=== PATIENT | male | born 1995 | race Caucasian/White ===

== ENCOUNTER 2025-03-31 05:43 | Emergency (ER) | payer BC, SELFPAY ==
[2025-03-31 05:51] VITALS: BP 144/95
--- NOTE | 2025-03-31 06:08 | ED.GENMED ---
History of Present Illness
<Niurka Sweeney PA-C - Last Filed: 03/31/25 08:31>
General
Chief Complaint: Chest Pain
Source: patient
Exam Limitations: none
Time Seen by Provider: 03/31/25 06:02
History of Present Illness
History of Present Illness:
29yoM with a history of obesity, asthma, GERD, and seasonal allergies presenting for evaluation of chest pain. He reports substernal and left lower chest pain that has been intermittent over the past day. Pain seems to come and go randomly and
lasts about 10 to 15 minutes at a time before resolving. Nothing seems to make the pain better or worse. Specifically, he denies any exertional or pleuritic pain. He initially thought his pain may be gas related although he had several bowel
movements without any improvement. He was feeling 'run down' yesterday but denies any fever or URI symptoms. He is otherwise asymptomatic and denies any shortness of breath, leg swelling, nausea, vomiting. No tobacco use.
Phy Exam
<Niurka Sweeney PA-C - Last Filed: 03/31/25 08:31>
General Physical Exam
General Presentation: well appearing and no apparent distress
General Skin: warm and dry
General Habitus: normal
General Mental: alert
ENT Exam
ENT Exam: normocephalic
Cardiovascular Exam
Cardiovascular Exam: regular rate/rhythm, no edema, no murmur and normal peripheral pulses (2+ radial and DP pulses bilaterally)
Pulmonary Exam
Pulmonary Exam: lungs clear, no respiratory distress, no rales, chest non tender, no crackles, no rhonchi and no wheezing
Neurological Exam
Neurological Exam: alert
[place] Coma Scale
Eye Opening: Spontaneous
Verbal Response: Oriented
Motor Response: Obeys Commands
GCS Total Score: 15
Skin Exam
Skin Exam: normal color and warm/dry
Psychiatric Exam
Psychiatric Exam: normal mood/affect
<Debo Grider MD - Last Filed: 03/31/25 07:40>
[place] Coma Scale
GCS Total Score: 15
Scores
<Niurka Sweeney PA-C - Last Filed: 03/31/25 08:31>
Heart Score for Chest Pain Patients
STEMI patient?: No
History: Slightly or Non-Suspicious
ECG: Normal
Age: </= 45 years
Risk Factors: 1 or 2 Risk Factors
Troponin: </= Normal Limit
Heart Score for Chest Pain Patients: 1
Heart Score Risk: 2.5% MACE over next 6 weeks
Course
<Niurka Sweeney PA-C - Last Filed: 03/31/25 08:31>
Orders/Labs/Results
Orders:
Orders
03/31/25 06:01
Electrocardiogram (*1) Urgent
Reason for Study: Chest Pain
Cardiac Monitoring- Treatment ONCE
EKG- Treatment ONCE
IV Insert/Care/Rem.- Treatment PRN
Chest [CR Chest - 2 Views ] Urgent
Comment:
Reason For Exam: cp
O2 Therapy [RESP] Urgent
Titrate/Wean O2 to maintain O2 sat greater than (%): 90
Special Instructions: Maintain sats >/=90%
Pulse Ox/spot Check [RESP] Urgent
Quantity: 1
Special Instructions: ON ROOM AIR
03/31/25 06:11
Complete Blood Count/With Diff Urgent
Comprehensive Metabolic Panel Urgent
Troponin I Urgent
Abnormal Lab Results
03/31/25
06:11
RDW 15.5 H %
(11.5-14.5)
Absolute Monos (auto) 0.7 H 10^3/uL
(0.1-0.6)
Monocytes % 10.0 H %
(1.7-9.3)
Chloride 109 H mmol/L
(98-107)
BUN 23 H mg/dl
(9-20)
Glucose 121 H mg/dl
(70-99)
03/31/25 06:11
03/31/25 06:11
Vital Signs
Initial and Last Documented VS:
Initial Vital Signs
Temp Pulse Resp BP Pulse Ox
98.2 F 78 18 144/95 99
03/31/25 05:51 03/31/25 05:51 03/31/25 05:51 03/31/25 05:51 03/31/25 05:51
Last Documented Vital Signs
Temp Pulse Resp BP Pulse Ox
98 F 79 22 145/82 98
03/31/25 06:11 03/31/25 06:47 03/31/25 06:47 03/31/25 07:49 03/31/25 07:50
<Debo Grider MD - Last Filed: 03/31/25 07:40>
Orders/Labs/Results
Orders:
Orders
03/31/25 06:01
Electrocardiogram (*1) Urgent
Reason for Study: Chest Pain
Cardiac Monitoring- Treatment ONCE
EKG- Treatment ONCE
IV Insert/Care/Rem.- Treatment PRN
Chest [CR Chest - 2 Views ] Urgent
Comment:
Reason For Exam: cp
O2 Therapy [RESP] Urgent
Titrate/Wean O2 to maintain O2 sat greater than (%): 90
Special Instructions: Maintain sats >/=90%
Pulse Ox/spot Check [RESP] Urgent
Quantity: 1
Special Instructions: ON ROOM AIR
03/31/25 06:11
Complete Blood Count/With Diff Urgent
Comprehensive Metabolic Panel Urgent
Troponin I Urgent
Abnormal Lab Results
03/31/25
06:11
RDW 15.5 H %
(11.5-14.5)
Absolute Monos (auto) 0.7 H 10^3/uL
(0.1-0.6)
Monocytes % 10.0 H %
(1.7-9.3)
Chloride 109 H mmol/L
(98-107)
BUN 23 H mg/dl
(9-20)
Glucose 121 H mg/dl
(70-99)
03/31/25 06:11
03/31/25 06:11
Vital Signs
Initial and Last Documented VS:
Initial Vital Signs
Temp Pulse Resp BP Pulse Ox
98.2 F 78 18 144/95 99
03/31/25 05:51 03/31/25 05:51 03/31/25 05:51 03/31/25 05:51 03/31/25 05:51
Last Documented Vital Signs
Temp Pulse Resp BP Pulse Ox
98 F 79 22 145/82 98
03/31/25 06:11 03/31/25 06:47 03/31/25 06:47 03/31/25 07:49 03/31/25 07:50
<Niurka Sweeney PA-C - Last Filed: 03/31/25 08:31>
MDM/Problems Addressed
Differential Diagnosis Includes:
29yoM here with intermittent dull L/central chest pain x 1 day. Comes and goes randomly. Otherwise asymptomatic. VSS. He is well appearing in no distress. Exam is reassuring. Differential diagnosis includes but is not limited to: musculoskeletal,
GERD, pneumonia, nonspecific chest pain, less likely ACS
Initial ED plan: Check cardiac labs, EKG, and CXR.
<Niurka Sweeney PA-C - Last Filed: 03/31/25 08:31>
*EKG
Interpreted by ED Provider?: Yes
EKG Intrepretation Date: 03/31/25
Heart Rate: 77
Rate: normal
Rhythm: sinus
[place]: normal axis
Interval: normal interval
QRS Pattern: normal QRS
Ischemia: no ischemia
*Critical Care Note
Total Time (30-74mins, 75-104mins- exclusive of procedures): Not Applicable
<Niurka Sweeney PA-C - Last Filed: 03/31/25 08:31>
Update Note
Update Note:
Labs overall unremarkable. EKG shows normal sinus rhythm without ischemic changes and troponin within normal limits. Chest x-ray is clear. HEART score is 1 for obesity risk factor. No indication for hospitalization. He does have an appointment
with his PCP scheduled for next month to have an EKG. Advised close outpatient follow-up and ED return precautions reviewed. Patient in agreement with plan and was discharged in stable condition.
ED Attending Note
<Niurka Sweeney PA-C - Last Filed: 03/31/25 08:31>
-
Portions of this chart may have been created with voice recognition software.� Occasional wrong word or��sound alike� substitutions may have occurred due to the inherent limitations of voice recognition software.
<Debo Grider MD - Last Filed: 03/31/25 07:40>
ED Attending Note
Patient seen and examined by attending physician: Yes
I performed the substantive portion of visit, reviewed & personally made and approve the management plan that is documented in note by myself or ROSARIO.: Yes
ED Attending Note:
29-year-old male with intermittent chest discomfort without associated nausea, vomiting, diaphoresis, dyspnea, leg swelling. On exam extremely well-appearing, awake alert oriented, voice clear, no swelling. Workup unremarkable for serious
etiology. Discharged with close follow-up.
Discharge Plan
Departure
Patient Disposition: Home (Routine Discharge)
Date of Disposition: 03/31/25
Time of Disposition: 07:38
Patient with high blood pressure during this ER visit?: Yes
Discharge Problem:
Nonspecific chest pain
Instructions: Chest Pain PCP Follow Up
Prescriptions:
No Action
omeprazole 20 MG capsule,delayed release(DR/EC)
20 mg PO DAILY
loratadine 10 MG tablet
10 mg PO DAILY
Referrals:
UNKNOWN - PT DOES,NOT KNOW [Family Provider]
Activity Restrictions/Additional Instructions:
Please call your family doctor today for follow-up. Return to the ER with any new or worsening symptoms.
Interventions
Interventions:
*Risk Screen - Suicide Last Done: 03/31/25 05:51
*General Assessment Last Done: 03/31/25 07:57
*Neglect/Abuse Screening Last Done: 03/31/25 07:57
*ED- Fall Risk Assessment Last Done: 03/31/25 07:57
*ED COVID-19 Vaccine History Last Done: 03/31/25 07:57
*Nursing Disposition Last Done: 03/31/25 07:57
ED- Cardiac Assessment Last Done: 03/31/25 06:40
Discharge Date and Time
Discharge Date/Time: 03/31/25 07:58
Print Language: BERMUDIAN
[2025-03-31 06:09] VITALS: BP 132/80
[2025-03-31 06:11] VITALS: BP 132/80; BMI 36.1
[2025-03-31 06:29] LABS: % Basophils 0.9 % (0-2); % Eosinophils 2.5 % (0-6); % Immature Granulocytes 0.3 % (0-0.5); % Lymphocytes 27.5 % (20.5-51.1); % Neutrophils 58.8 % (42.2-75.2); Absolute Basophils 0.1 10^3/uL (0-0.2); Absolute Eosinophils 0.2 10^3/uL (0-0.7); Absolute Lymphocytes 1.9 10^3/uL (1.2-3.4); Absolute Monocytes 0.7 10^3/uL (0.1-0.6); Hematocrit 43.5 % (39.0-52.0); Hemoglobin 14.6 g/dL (13.0-18.0); Mean Corp Hgb Conc. 33.6 g/dL (33.0-37.0); Mean Corpuscular Hgb 27.4 pg (27.0-31.0); Mean Corpuscular Volume 81.8 fL (80.0-94.0); Mean Platelet Volume 10.4 fL (7.4-10.4); Nucleated Red Blood Cells % 0 % (-); Platelet Count 238 10^3/uL (130-400); Red Blood Cell Count 5.32 10^6/uL (4.70-6.10); Red Cell Dist. Width 15.5 % (11.5-14.5); White Blood Cell Count 6.8 10^3/uL (4.8-10.8)
[2025-03-31 06:46] LABS: ALT (SGPT) 40 U/L (0-50); AST (SGOT) 27 U/L (17-59); Albumin 4.9 g/dl (3.5-5.0); Alkaline Phosphatase 75 U/L (38-126); Blood Urea Nitrogen 23 mg/dl (9-20); Calcium 9.9 mg/dl (8.4-10.2); Carbon Dioxide 25 mmol/L (22-30); Chloride 109 mmol/L (98-107); Estimated Creatinine Clearance > 125 ml/min; Glucose 121 mg/dl (70-99); Potassium 4.3 mmol/L (3.5-5.1); Sodium 141 mmol/L (135-145); Total Bilirubin 0.9 mg/dl (0.2-1.3); Total Protein 7.8 g/dl (6.3-8.2); eGFR > 60.00
[2025-03-31 06:57] LABS: Troponin I < 0.012 ng/ml
[2025-03-31 07:49] VITALS: BP 145/82
== END 2025-03-31 07:58 | disposition home or self-care (01) ==
LOC: EMR 05:43
PROVIDERS: EMERGENCY PHYSICIAN Emergency Medicine
DX: R07.89 Other chest pain (principal); E66.9 Obesity, unspecified; J45.909 Unspecified asthma, uncomplicated; K21.9 Gastro-esophageal reflux disease without esophagitis
CPT/HCPCS: 99283; 71046; 80053; 84484; 85025; 93005